=== PATIENT | female | born 1935 | race American Indian/Alaskan Native ===

== ENCOUNTER 2021-02-26 12:34 | Observation (INO) | payer MEDICARE, BC ==
[2021-02-26] MEDS ORDERED: Metoclopramide 10 MG/2 ML SDV IVPUSH ONE (13:00)
--- NOTE | 2021-02-26 13:00 | EDM.PDOC ---
ED HPI GENERAL MEDICAL PROBLEM - General Chief Complaint: Headache Stated Complaint: headache/vomiting Time Seen by Provider: 02/26/21 12:36 Source of Information: Reports: Patient History Limitations: Reports: No Limitations - History of Present Illness INITIAL COMMENTS - FREE TEXT/NARRATIVE: Patient is 85-year-old female presents today for multiple complaints. States that she is having swelling of her lower legs that she was given Lasix by her PMD and was told to take 1 daily however she took 6 pills in 1 day and she became nauseous afterwards. Also reports started having a diffuse headache as well but no vision changes no neurologic complaints. She was complaints abdominal pain after taking lisinopril as well. Patient reported some nausea and vomiting as well as still feels nauseous currently. Patient denies any fever chills or other complaints. headache Pain Score (Numeric/FACES): 8 - Related Data Allergies Allergy/AdvReac Type Severity Reaction Status Date / Time codeine Allergy Vomiting Verified 02/26/21 12:44 diazepam [From Valium] Allergy Cannot Verified 02/26/21 12:44 Remember doxycycline Allergy Nausea and Verified 02/26/21 12:44 Vomiting meperidine HCl [From Demerol] Allergy Nausea and Verified 02/26/21 12:44 Vomiting Home Meds: Home Meds Rivaroxaban [Xarelto] 15 mg PO DAILY #30 tablet 08/15/14 [Rx] HCTZ/Triamterene [Maxzide 50-75 MG] 0.5 tab PO DAILY 07/19/15 [History] Quinapril [Accupril] 10 mg PO DAILY 04/09/18 [History] traMADol HCl [Tramadol HCl] 50 mg PO Q6H PRN #16 tablet 05/04/19 [Rx] Past Medical History HEENT History: Reports: Cataract Other HEENT History: wears glasses Cardiovascular History: Reports: Afib, Hypertension 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: Musculoskeletal History: Reports: Arthritis Neurological History: Reports: Vertigo Other Neuro History: cannot lay flat Psychiatric History: Reports: Anxiety Endocrine/Metabolic History: Reports: Obesity/BMI 30+, Other (See Below) Other Endocrine/Metabolic History: states hypoglycemic Hematologic History: Reports: Anticoagulation Therapy, Blood Transfusion(s) - Infectious Disease History Infectious Disease History: Reports: Chicken Pox - Past Surgical History Head Surgeries/Procedures: Reports: None HEENT Surgical History: Reports: Cataract Surgery GI Surgical History: Reports: Cholecystectomy Female Surgical History: Reports: Hysterectomy, Other (See Below) Other Female Surgeries/Procedures: hx of "bladder lift" Musculoskeletal Surgical History: Reports: Knee Replacement Other Musculoskeletal Surgeries/Procedures:: Bilateral TKA Social & Family History - Family History Family Medical History: No Pertinent Family History - Caffeine Use Caffeine Use: Reports: None ED ROS GENERAL - Review of Systems Review Of Systems: See Below Constitutional: Reports: No Symptoms HEENT: Reports: No Symptoms Respiratory: Reports: Shortness of Breath Cardiovascular: Reports: No Symptoms Endocrine: Reports: No Symptoms GI/Abdominal: Reports: Abdominal Pain, Nausea, Vomiting : Reports: No Symptoms Musculoskeletal: Reports: No Symptoms Skin: Reports: No Symptoms Neurological: Reports: No Symptoms Psychiatric: Reports: No Symptoms Hematologic/Lymphatic: Reports: No Symptoms Immunologic: Reports: No Symptoms ED EXAM, GI/ABD - Physical Exam Exam: See Below Exam Limited By: No Limitations General Appearance: Alert, WD/WN, No Apparent Distress Eyes: Bilateral: EOMI Ears: Normal External Exam Respiratory/Chest: No Respiratory Distress, Lungs Clear, Normal Breath Sounds Cardiovascular: Normal Peripheral Pulses, Regular Rate, Rhythm GI/Abdominal Exam: Normal Bowel Sounds, Soft, Non-Tender Neurological: Alert, Oriented #1 Interpretation EKG Date: 02/26/21 Time: 15:36 Rhythm: NSR Rate (Beats/Min): 87 ST-T: Normal Course - Vital Signs Last Recorded V/S: Last Vital Signs Temp 97.5 F 02/26/21 12:44 Pulse 72 02/26/21 13:28 Resp 18 02/26/21 13:28 BP 100/58 L 02/26/21 13:28 Pulse Ox 97 02/26/21 13:28 - Orders/Labs/Meds Orders: Active Orders 24 hr Category Date Time Status Patient Status [ADT] Routine ADT 02/26/21 15:49 Ordered EKG 12 Lead [EKG Documentation Completion] [RC] STAT Care 02/26/21 15:23 Active CREATININE,URINE RAND [URCHEM] Stat Lab 02/26/21 15:15 Received OSMOLALITY - SERUM [REF] Stat Lab 02/26/21 13:58 Ordered OSMOLALITY - URINE Stat Lab 02/26/21 15:15 Received SODIUM,URINE RANDOM [URCHEM] Stat Lab 02/26/21 15:15 Received UREA NITROGEN, URINE Stat Lab 02/26/21 15:15 Received URIC ACID, URINE Stat Lab 02/26/21 15:15 Received Piperacillin/Tazobactam [Piperacil-Tazobact] 3.375 gm Med 02/26/21 15:50 Ordered Sodium Chloride 0.9% [Normal Saline] 50 ml IV ONETIME Sodium Chloride 0.9% [Normal Saline] 1,000 ml Med 02/26/21 15:30 Active IV ASDIRECTED Medication Orders Sodium Chloride (Normal Saline) 1,000 mls @ 1,000 mls/hr IV ASDIRECTED JANAK Last Admin: 02/26/21 15:43 Dose: 1,000 mls/hr Documented by: PATIENCE Labs: Laboratory Tests 02/26/21 02/26/21 02/26/21 Range/Units 12:47 12:47 12:47 WBC 11.50 H (4.0-11.0) K/uL RBC 4.23 L (4.30-5.90) M/uL Hgb 12.4 (12.0-16.0) g/dL Hct 35.6 L (36.0-46.0) % MCV 84.2 (80.0-98.0) fL MCH 29.3 (27.0-32.0) pg MCHC 34.8 (31.0-37.0) g/dL RDW Std Deviation 40.6 (28.0-62.0) fl RDW Coeff of Terence 14 (11.0-15.0) % Plt Count 238 (150-400) K/uL MPV 10.00 (7.40-12.00) fL Neut % (Auto) 65.6 (48.0-80.0) % Lymph % (Auto) 22.6 (16.0-40.0) % Dare % (Auto) 9.8 (0.0-15.0) % Eos % (Auto) 1.7 (0.0-7.0) % Baso % (Auto) 0.3 (0.0-1.5) % Neut # (Auto) 7.6 H (1.4-5.7) K/uL Lymph # (Auto) 2.6 H (0.6-2.4) K/uL Dare # (Auto) 1.1 H (0.0-0.8) K/uL Eos # (Auto) 0.2 (0.0-0.7) K/uL Baso # (Auto) 0.0 (0.0-0.1) K/uL Nucleated RBC % 0.0 /100WBC Nucleated RBCs # 0 K/uL Sodium 121 L (136-145) mmol/L Potassium 4.4 (3.5-5.1) mmol/L Chloride 86 L (98-107) mmol/L Carbon Dioxide 26.6 (21.0-32.0) mmol/L BUN 24 H (7.0-18.0) mg/dL Creatinine 1.2 H (0.6-1.0) mg/dL Est Cr Clr Drug Dosing 29.60 mL/min Estimated GFR (MDRD) 42.7 ml/min Glucose 97 (74-106) mg/dL Calcium 9.4 (8.5-10.1) mg/dL Phosphorus 3.9 (2.6-4.7) mg/dL Magnesium 1.4 L (1.8-2.4) mg/dL Total Bilirubin 0.6 (0.2-1.0) mg/dL AST 22 (15-37) IU/L ALT 20 (14-63) IU/L Alkaline Phosphatase 64 (46-116) U/L Creatine Kinase 71 (26-308) U/L Troponin I < 0.050 (0.000-0.056) ng/mL B-Natriuretic Peptide 171 H (<100) PG/ML Total Protein 7.1 (6.4-8.2) g/dL Albumin 3.7 (3.4-5.0) g/dL Globulin 3.4 (2.6-4.0) g/dL Albumin/Globulin Ratio 1.1 (0.9-1.6) Lipase 129 (73-393) U/L Urine Color Urine Appearance Urine pH (5.0-8.0) Ur Specific [place] (1.001-1.035) Urine Protein (NEGATIVE) mg/dL Urine Glucose (UA) (NEGATIVE) mg/dL Urine Ketones (NEGATIVE) mg/dL Urine Occult Blood (NEGATIVE) Urine Nitrite (NEGATIVE) Urine Bilirubin (NEGATIVE) Urine Urobilinogen (<2.0) EU/dL Ur Leukocyte Esterase (NEGATIVE) Urine RBC (0-2/HPF) Urine WBC (0-5/HPF) Ur Epithelial Cells (NONE-FEW) Urine Bacteria (NEGATIVE) 02/26/21 Range/Units 15:15 WBC (4.0-11.0) K/uL RBC (4.30-5.90) M/uL Hgb (12.0-16.0) g/dL Hct (36.0-46.0) % MCV (80.0-98.0) fL MCH (27.0-32.0) pg MCHC (31.0-37.0) g/dL RDW Std Deviation (28.0-62.0) fl RDW Coeff of Terence (11.0-15.0) % Plt Count (150-400) K/uL MPV (7.40-12.00) fL Neut % (Auto) (48.0-80.0) % Lymph % (Auto) (16.0-40.0) % Dare % (Auto) (0.0-15.0) % Eos % (Auto) (0.0-7.0) % Baso % (Auto) (0.0-1.5) % Neut # (Auto) (1.4-5.7) K/uL Lymph # (Auto) (0.6-2.4) K/uL Dare # (Auto) (0.0-0.8) K/uL Eos # (Auto) (0.0-0.7) K/uL Baso # (Auto) (0.0-0.1) K/uL Nucleated RBC % /100WBC Nucleated RBCs # K/uL Sodium (136-145) mmol/L Potassium (3.5-5.1) mmol/L Chloride (98-107) mmol/L Carbon Dioxide (21.0-32.0) mmol/L BUN (7.0-18.0) mg/dL Creatinine (0.6-1.0) mg/dL Est Cr Clr Drug Dosing mL/min Estimated GFR (MDRD) ml/min Glucose (74-106) mg/dL Calcium (8.5-10.1) mg/dL Phosphorus (2.6-4.7) mg/dL Magnesium (1.8-2.4) mg/dL Total Bilirubin (0.2-1.0) mg/dL AST (15-37) IU/L ALT (14-63) IU/L Alkaline Phosphatase (46-116) U/L Creatine Kinase (26-308) U/L Troponin I (0.000-0.056) ng/mL B-Natriuretic Peptide (<100) PG/ML Total Protein (6.4-8.2) g/dL Albumin (3.4-5.0) g/dL Globulin (2.6-4.0) g/dL Albumin/Globulin Ratio (0.9-1.6) Lipase (73-393) U/L Urine Color YELLOW Urine Appearance SLT CLOUDY Urine pH 7.0 (5.0-8.0) Ur Specific [place] 1.010 (1.001-1.035) Urine Protein NEGATIVE (NEGATIVE) mg/dL Urine Glucose (UA) NEGATIVE (NEGATIVE) mg/dL Urine Ketones NEGATIVE (NEGATIVE) mg/dL Urine Occult Blood TRACE-INTACT H (NEGATIVE) Urine Nitrite NEGATIVE (NEGATIVE) Urine Bilirubin NEGATIVE (NEGATIVE) Urine Urobilinogen 0.2 (<2.0) EU/dL Ur Leukocyte Esterase LARGE H (NEGATIVE) Urine RBC 0-2 (0-2/HPF) Urine WBC 15-20 (0-5/HPF) Ur Epithelial Cells RARE (NONE-FEW) Urine Bacteria 1+ H (NEGATIVE) Meds: Medications Generic Name Dose Route Start Last Admin Trade Name Freq PRN Reason Stop Dose Admin Sodium Chloride 1,000 mls @ 1,000 mls/hr 02/26/21 15:30 02/26/21 15:43 Normal Saline IV 1,000 mls/hr ASDIRECTED JANAK Administration Discontinued Medications Generic Name Dose Route Start Last Admin Trade Name Freq PRN Reason Stop Dose Admin Iopamidol 80 ml 02/26/21 14:50 02/26/21 14:50 Iopamidol 755 Mg/Ml 500 Ml Multipack Bottle IVPUSH 02/26/21 14:51 80 ml ONETIME ONE Administration Metoclopramide HCl 10 mg 02/26/21 13:00 02/26/21 13:23 Metoclopramide 10 Mg/2 Ml Sdv IVPUSH 02/26/21 13:01 10 mg ONETIME ONE Administration - Re-Assessments/Exams Free Text/Narrative Re-Assessment/Exam: 02/26/21 15:52 Patient is hyponatremic will be given a liter of fluids. Patient is a symptomatic currently. Patient CAT scan showed enteritis. Patient will be admitted for observation sodium correction. Departure - Departure Time of Disposition: 15:51 Disposition: Refer to Observation Condition: Good Clinical Impression: Hyponatremia - Discharge Information Forms: ED Department Discharge Critical Care Note - Critical Care Note Total Time (mins): 45 Comments: Critical Care Procedure Note Authorized and Performed by: Dr. Junior Total critical care time: Approximately Due to a high probability of clinically significant, life threatening deterioration, the patient required my highest level of preparedness to interv lucinda emergently and I personally spent this critical care time directly and personally managing the patient. This critical care time included obtaining a history; examining the patient; pulse oximetry; ordering and review of studies; arranging urgent treatment with development of a management plan; evaluation of patient's response to treatment; frequent reassessment; and, discussions with other providers. This critical care time was performed to assess and manage the high probability of imminent, life-threatening deterioration that could result in multi-organ failure. It was exclusive of separately billable procedures and treating other patients and teaching time. Sepsis Event Note (ED) - Focused Exam Vital Signs: Vital Signs Temp Pulse Resp BP Pulse Ox 02/26/21 13:28 72 18 100/58 L 97 02/26/21 12:44 97.5 F 67 18 121/75 97 - My Orders Last 24 Hours: My Active Orders 02/26/21 13:58 OSMOLALITY - SERUM [REF] Stat 02/26/21 15:15 CREATININE,URINE RAND [URCHEM] Stat OSMOLALITY - URINE Stat SODIUM,URINE RANDOM [URCHEM] Stat UREA NITROGEN, URINE Stat URIC ACID, URINE Stat 02/26/21 15:23 EKG 12 Lead [EKG Documentation Completion] [RC] STAT 02/26/21 15:30 Sodium Chloride 0.9% [Normal Saline] 1,000 ml IV ASDIRECTED 02/26/21 15:49 Patient Status [ADT] Routine 02/26/21 15:50 Piperacillin/Tazobactam [Piperacil-Tazobact] 3.375 gm Sodium Chloride 0.9% [Normal Saline] 50 ml IV ONETIME - Assessment/Plan Last 24 Hours: My Active Orders 02/26/21 13:58 OSMOLALITY - SERUM [REF] Stat 02/26/21 15:15 CREATININE,URINE RAND [URCHEM] Stat OSMOLALITY - URINE Stat SODIUM,URINE RANDOM [URCHEM] Stat UREA NITROGEN, URINE Stat URIC ACID, URINE Stat 02/26/21 15:23 EKG 12 Lead [EKG Documentation Completion] [RC] STAT 02/26/21 15:30 Sodium Chloride 0.9% [Normal Saline] 1,000 ml IV ASDIRECTED 02/26/21 15:49 Patient Status [ADT] Routine 02/26/21 15:50 Piperacillin/Tazobactam [Piperacil-Tazobact] 3.375 gm Sodium Chloride 0.9% [Normal Saline] 50 ml IV ONETIME Assessment:: Patient is a 85-year-old female who presents today for complaints of lower extremity swelling abdominal pain and headache. She also states she took 6 of her water pills in 1 day because she went to get more fluid off. Symptoms may be related to this. We will obtain x-ray CT of the abdomen and provide a pain control.
[2021-02-26 13:45] LABS: BLOOD UREA NITROGEN,BUN 24 mg/dL (7.0-18.0); CARBON DIOXIDE,CO2 26.6 mmol/L (21.0-32.0); GLUCOSE RANDOM 97 mg/dL (74-106); LIPASE 129 U/L (73-393)
[2021-02-26 13:52] LABS: CHLORIDE,CL 86 mmol/L (98-107); POTASSIUM,K 4.4 mmol/L (3.5-5.1)
[2021-02-26 14:22] LABS: SODIUM,NA 121 mmol/L (136-145)
[2021-02-26] MEDS ORDERED: Iopamidol 755 MG/ML 500 ML Multipack Bottle IVPUSH ONE (14:50)
--- NOTE | 2021-02-26 15:24 | CT ---
INDICATION: Dizziness and headache TECHNIQUE: CT head without contrast. COMPARISON: None. FINDINGS: CSF spaces: Within normal limits for age. Brain parenchyma and extra-axial spaces: The gomez-white differentiation is normal. No sign of mass, hemorrhage, or midline shift. No extra-axial fluid collection. Skull base and calvarium: The visualized paranasal sinuses and mastoid air cells demonstrate no acute or significant findings. The visualized orbits are grossly unremarkable. No skull fractures. IMPRESSION: Unremarkable noncontrast head CT. Please note that all CT scans at this facility use dose modulation, iterative reconstruction, and/or weight-based dosing when appropriate to reduce radiation dose to as low as reasonably achievable. Dictated by Estiven Diaz MD @ 02/26/2021 3:24:[address] Estiven Diaz @ Feb 26 2021 3:24PM
[2021-02-26] MEDS ORDERED: Sodium Chloride 0.9% 1,000 ML IV SCH (15:30)
--- NOTE | 2021-02-26 15:35 | CR ---
INDICATION: Shortness of breath. CHF. COMPARISON: 05/11/2015 FINDINGS: AP and lateral views of the chest were obtained. The lungs remain clear. No focal or diffuse infiltrates are present. The heart has increased in size and is now top normal in size. The mediastinum is normal in appearance. The osseous structures are normal in appearance for the patient`s age. IMPRESSION: Increased heart size, not top-normal. No active disease seen in the chest. Dictated by Tylor Julio MD @ 02/26/2021 3:33:[address] Tylor Julio @ Feb 26 2021 3:33PM
--- NOTE | 2021-02-26 15:46 | CT ---
INDICATION: Abdominal pain. TECHNIQUE: CT abdomen and pelvis acquired with 80 cc Isovue 370 IV contrast. COMPARISON: June 05, 2017. FINDINGS: Lower chest: Unremarkable. Liver: Unremarkable. Normal in size and attenuation. No suspicious masses. Gallbladder and bile ducts: Gallbladder is not present. No biliary dilatation. Pancreas: Unremarkable. No mass or inflammation. Spleen: Unremarkable. Normal in size. No suspicious masses. Adrenal glands: Unremarkable. No nodules. Kidneys: Moderate bilateral atrophy. Otherwise unremarkable. GI tract: Small fluid levels present in the distal small bowel and proximal colon. GI tract otherwise within normal limits in caliber and appearance. No sign of mass or acute inflammation. Vasculature: Unremarkable. Mesenteric arteries are patent. Lymph nodes: No lymphadenopathy. Omentum/Peritoneum/Abdominal Wall: Unremarkable. No sign of mass or infiltration. No free air or significant free fluid. Pelvis: Unremarkable. Bones: Unremarkable for age. IMPRESSION: Nonspecific small fluid levels in the distal small bowel and proximal colon can be seen with a general enteritis or diarrheal illness. Remainder of the exam is unremarkable. No other acute or specific finding to explain abdominal pain. Please note that all CT scans at this facility use dose modulation, iterative reconstruction, and/or weight-based dosing when appropriate to reduce radiation dose to as low as reasonably achievable. Dictated by Estiven Diaz MD @ 02/26/2021 3:44:[address] Estiven Diaz @ Feb 26 2021 3:44PM
[2021-02-26] MEDS ORDERED: Piperacillin/Tazobactam 3.375 GM in Sodium Chloride 0.9% 50 ML IV ONE (15:50)
[2021-02-26] MEDS ORDERED: Albuterol/Ipratropium 3.0-0.5 MG/3 ML Neb Soln NEB PRN (17:06)
[2021-02-26] MEDS ORDERED: Lactated Ringers 1,000 ML IV ONE (17:06)
[2021-02-26] MEDS ORDERED: Ondansetron 4 MG/2 ML SDV IVPUSH PRN (17:06)
--- NOTE | 2021-02-26 17:10 | PCM.HP.2 ---
H&P History of Present Illness - General Date of Service: 02/26/21 Admit Problem/Dx: Admission Diagnosis/Problem Admission Diagnosis/Problem Hyponatremia - History of Present Illness Initial Comments - Free Text/Narative: Patient is a 85-year-old female with past medical history of A. fib on anticoagulation, hypertension, arthritis who comes in stating that she has been nauseous and has vomited once associated with some abdominal pain for last few days. Patient states that couple of days back she was started on Lasix by her primary care doctor for leg swelling she took 1 pill on first day and 2 pills following day for 3 more days. She did not have a good appetite after starting her Lasix pill and felt nauseous and had abdominal pain as well as result she got dehydrated. Patient states that her leg swelling has resolved by now but continues to have some abdominal discomfort. In the ER patient was found to be hyponatremic as well has had some mild renal insufficiency. CT scan of the abdomen was obtained which showed possible colitis. Patient was admitted to the hospital for further management of hyponatremia and colitis. headache Pain Score (Numeric/FACES): 8 - Related Data Allergies/Adverse Reactions: Allergies Allergy/AdvReac Type Severity Reaction Status Date / Time codeine Allergy Vomiting Verified 02/26/21 17:27 diazepam [From Valium] Allergy Cannot Verified 02/26/21 17:27 Remember doxycycline Allergy Nausea and Verified 02/26/21 17:27 Vomiting meperidine HCl [From Demerol] Allergy Nausea and Verified 02/26/21 17:27 Vomiting Home Medications: Home Meds Rivaroxaban [Xarelto] 15 mg PO DAILY #30 tablet 08/15/14 [Rx] Quinapril [Accupril] 20 mg PO DAILY 04/09/18 [History] Furosemide 40 mg PO ASDIRECTED 02/27/21 [History] Triamterene/Hydrochlorothiazid [Triamterene-HCTZ 37.5-25 MG] 1 tab PO DAILY 02/27/21 [History] atenoloL [Atenolol] 50 mg PO DAILY 02/27/21 [History] traMADol HCl [Tramadol HCl] 50 mg PO QPM PRN MDD 50 02/27/21 [History] Past Medical History HEENT History: Reports: Cataract Other HEENT History: wears glasses Cardiovascular History: Reports: Afib, Hypertension 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: Musculoskeletal History: Reports: Arthritis Neurological History: Reports: Vertigo Other Neuro History: cannot lay flat Psychiatric History: Reports: Anxiety Endocrine/Metabolic History: Reports: Obesity/BMI 30+, Other (See Below) Other Endocrine/Metabolic History: states hypoglycemic Hematologic History: Reports: Anticoagulation Therapy, Blood Transfusion(s) - Infectious Disease History Infectious Disease History: Reports: Chicken Pox - Past Surgical History Head Surgeries/Procedures: Reports: None HEENT Surgical History: Reports: Cataract Surgery GI Surgical History: Reports: Cholecystectomy Female Surgical History: Reports: Hysterectomy, Other (See Below) Other Female Surgeries/Procedures: hx of "bladder lift" Musculoskeletal Surgical History: Reports: Knee Replacement Other Musculoskeletal Surgeries/Procedures:: Bilateral TKA Social & Family History - Family History Family Medical History: No Pertinent Family History - Caffeine Use Caffeine Use: Reports: None H&P Review of Systems - Review of Systems: Review Of Systems: See Below General: Reports: Malaise, Weakness. Denies: Fever, Chills Pulmonary: Denies: Shortness of Breath, Wheezing, Pleuritic Chest Pain Gastrointestinal: Reports: Abdominal Pain, Anorexia, Decreased Appetite, Nausea, Vomiting. Denies: Black Stool, Bloody Stool Genitourinary: Denies: Dysuria, Frequency, Burning Musculoskeletal: Denies: Neck Pain, Shoulder Pain, Arm Pain Skin: Denies: Cyanosis, Jaundice, Mottled Psychiatric: Denies: Confusion, Depression, Mood Lability Neurological: Denies: Confusion, Dizziness, Headache, Numbness Exam - Exam Exam: See Below - Vital Signs Vital Signs: Last Vital Signs Temp 36.4 C 02/26/21 12:44 Pulse 72 02/26/21 13:28 Resp 18 02/26/21 13:28 BP 100/58 L 02/26/21 13:28 Pulse Ox 97 02/26/21 13:28 Weight: 86.183 kg - Exam General: Alert, Oriented, Cooperative Neck: Supple, Trachea Midline Lungs: Clear to Auscultation, Normal Respiratory Effort Cardiovascular: Regular Rate, Normal S1, Normal S2, Irregular Rhythm GI/Abdominal Exam: Normal Bowel Sounds, Soft, Non-Tender Extremities: Normal Inspection, Normal Range of Motion - Patient Data Lab Results Last 24 hrs: Laboratory Results - last 24 hr 02/26/21 02/26/21 02/26/21 Range/Units 12:47 12:47 12:47 WBC 11.50 H (4.0-11.0) K/uL RBC 4.23 L (4.30-5.90) M/uL Hgb 12.4 (12.0-16.0) g/dL Hct 35.6 L (36.0-46.0) % MCV 84.2 (80.0-98.0) fL MCH 29.3 (27.0-32.0) pg MCHC 34.8 (31.0-37.0) g/dL RDW Std Deviation 40.6 (28.0-62.0) fl RDW Coeff of Terence 14 (11.0-15.0) % Plt Count 238 (150-400) K/uL MPV 10.00 (7.40-12.00) fL Neut % (Auto) 65.6 (48.0-80.0) % Lymph % (Auto) 22.6 (16.0-40.0) % Mower % (Auto) 9.8 (0.0-15.0) % Eos % (Auto) 1.7 (0.0-7.0) % Baso % (Auto) 0.3 (0.0-1.5) % Neut # (Auto) 7.6 H (1.4-5.7) K/uL Lymph # (Auto) 2.6 H (0.6-2.4) K/uL Mower # (Auto) 1.1 H (0.0-0.8) K/uL Eos # (Auto) 0.2 (0.0-0.7) K/uL Baso # (Auto) 0.0 (0.0-0.1) K/uL Nucleated RBC % 0.0 /100WBC Nucleated RBCs # 0 K/uL Sodium 121 L (136-145) mmol/L Potassium 4.4 (3.5-5.1) mmol/L Chloride 86 L (98-107) mmol/L Carbon Dioxide 26.6 (21.0-32.0) mmol/L BUN 24 H (7.0-18.0) mg/dL Creatinine 1.2 H (0.6-1.0) mg/dL Est Cr Clr Drug Dosing 29.60 mL/min Estimated GFR (MDRD) 42.7 ml/min Glucose 97 (74-106) mg/dL Calcium 9.4 (8.5-10.1) mg/dL Phosphorus 3.9 (2.6-4.7) mg/dL Magnesium 1.4 L (1.8-2.4) mg/dL Total Bilirubin 0.6 (0.2-1.0) mg/dL AST 22 (15-37) IU/L ALT 20 (14-63) IU/L Alkaline Phosphatase 64 (46-116) U/L Creatine Kinase 71 (26-308) U/L Troponin I < 0.050 (0.000-0.056) ng/mL B-Natriuretic Peptide 171 H (<100) PG/ML Total Protein 7.1 (6.4-8.2) g/dL Albumin 3.7 (3.4-5.0) g/dL Globulin 3.4 (2.6-4.0) g/dL Albumin/Globulin Ratio 1.1 (0.9-1.6) Lipase 129 (73-393) U/L Urine Color Urine Appearance Urine pH (5.0-8.0) Ur Specific [place] (1.001-1.035) Urine Protein (NEGATIVE) mg/dL Urine Glucose (UA) (NEGATIVE) mg/dL Urine Ketones (NEGATIVE) mg/dL Urine Occult Blood (NEGATIVE) Urine Nitrite (NEGATIVE) Urine Bilirubin (NEGATIVE) Urine Urobilinogen (<2.0) EU/dL Ur Leukocyte Esterase (NEGATIVE) Urine RBC (0-2/HPF) Urine WBC (0-5/HPF) Ur Epithelial Cells (NONE-FEW) Urine Bacteria (NEGATIVE) Ur Random Creatinine mg/dL Ur Random Sodium (40.0-220.0) mmol/L 02/26/21 02/26/21 Range/Units 15:15 15:15 WBC (4.0-11.0) K/uL RBC (4.30-5.90) M/uL Hgb (12.0-16.0) g/dL Hct (36.0-46.0) % MCV (80.0-98.0) fL MCH (27.0-32.0) pg MCHC (31.0-37.0) g/dL RDW Std Deviation (28.0-62.0) fl RDW Coeff of Terence (11.0-15.0) % Plt Count (150-400) K/uL MPV (7.40-12.00) fL Neut % (Auto) (48.0-80.0) % Lymph % (Auto) (16.0-40.0) % Mower % (Auto) (0.0-15.0) % Eos % (Auto) (0.0-7.0) % Baso % (Auto) (0.0-1.5) % Neut # (Auto) (1.4-5.7) K/uL Lymph # (Auto) (0.6-2.4) K/uL Mower # (Auto) (0.0-0.8) K/uL Eos # (Auto) (0.0-0.7) K/uL Baso # (Auto) (0.0-0.1) K/uL Nucleated RBC % /100WBC Nucleated RBCs # K/uL Sodium (136-145) mmol/L Potassium (3.5-5.1) mmol/L Chloride (98-107) mmol/L Carbon Dioxide (21.0-32.0) mmol/L BUN (7.0-18.0) mg/dL Creatinine (0.6-1.0) mg/dL Est Cr Clr Drug Dosing mL/min Estimated GFR (MDRD) ml/min Glucose (74-106) mg/dL Calcium (8.5-10.1) mg/dL Phosphorus (2.6-4.7) mg/dL Magnesium (1.8-2.4) mg/dL Total Bilirubin (0.2-1.0) mg/dL AST (15-37) IU/L ALT (14-63) IU/L Alkaline Phosphatase (46-116) U/L Creatine Kinase (26-308) U/L Troponin I (0.000-0.056) ng/mL B-Natriuretic Peptide (<100) PG/ML Total Protein (6.4-8.2) g/dL Albumin (3.4-5.0) g/dL Globulin (2.6-4.0) g/dL Albumin/Globulin Ratio (0.9-1.6) Lipase (73-393) U/L Urine Color YELLOW Urine Appearance SLT CLOUDY Urine pH 7.0 (5.0-8.0) Ur Specific [place] 1.010 (1.001-1.035) Urine Protein NEGATIVE (NEGATIVE) mg/dL Urine Glucose (UA) NEGATIVE (NEGATIVE) mg/dL Urine Ketones NEGATIVE (NEGATIVE) mg/dL Urine Occult Blood TRACE-INTACT H (NEGATIVE) Urine Nitrite NEGATIVE (NEGATIVE) Urine Bilirubin NEGATIVE (NEGATIVE) Urine Urobilinogen 0.2 (<2.0) EU/dL Ur Leukocyte Esterase LARGE H (NEGATIVE) Urine RBC 0-2 (0-2/HPF) Urine WBC 15-20 (0-5/HPF) Ur Epithelial Cells RARE (NONE-FEW) Urine Bacteria 1+ H (NEGATIVE) Ur Random Creatinine 28.6 mg/dL Ur Random Sodium 52.0 (40.0-220.0) mmol/L Result Diagrams: 02/27/21 07:04 02/27/21 07:04 Sepsis Event Note - Evaluation Sepsis Screening Result: No Definite Risk - Focused Exam Vital Signs: Vital Signs Temp Pulse Resp BP Pulse Ox 02/26/21 13:28 72 18 100/58 L 97 02/26/21 12:44 36.4 C 67 18 121/75 97 - Problem List (1) Hyponatremia SNOMED Code(s): 79156460 ICD Code: E87.1 - HYPO-OSMOLALITY AND HYPONATREMIA Status: Acute Current Visit: Yes (2) Anticoagulant long-term use SNOMED Code(s): 532892892 ICD Code: Z79.01 - 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 Status: Acute Priority: Medium Current Visit: No (3) Arthritis of left foot SNOMED Code(s): 3752295163960083 ICD Code: M19.072 - PRIMARY OSTEOARTHRITIS, LEFT ANKLE AND FOOT Status: Acute Current Visit: No (4) Atrial fibrillation SNOMED Code(s): 84089541 ICD Code: I48.91 - UNSPECIFIED ATRIAL FIBRILLATION Status: Acute Current Visit: No Qualifiers: Atrial fibrillation type: chronic (5) Hypertension SNOMED Code(s): 87687456 ICD Code: I10 - ESSENTIAL (PRIMARY) HYPERTENSION Status: Acute Priority: Medium Current Visit: No Qualifiers: Hypertension type: essential hypertension Qualified Code(s): I10 - Essential (primary) hypertension (6) Osteoarthritis of knee SNOMED Code(s): 224845063 ICD Code: M17.9 - OSTEOARTHRITIS OF KNEE, UNSPECIFIED Status: Acute Current Visit: No (7) Spinal stenosis SNOMED Code(s): 57109253 ICD Code: M48.00 - SPINAL STENOSIS, SITE UNSPECIFIED Status: Acute Current Visit: No (8) UTI (urinary tract infection) SNOMED Code(s): 07932543 ICD Code: N39.0 - URINARY TRACT INFECTION, SITE NOT SPECIFIED Status: Acute Current Visit: No Problem List Initiated/Reviewed/Updated: Yes Orders Last 24hrs: Active Orders 24 hr Category Date Time Status Patient Status [ADT] Routine ADT 02/26/21 15:49 Active Ambulate [RC] ASDIRECTED Care 02/26/21 17:06 Ordered Antiembolic Devices [RC] PER UNIT ROUTINE Care 02/26/21 17:07 Ordered EKG 12 Lead [EKG Documentation Completion] [RC] STAT Care 02/26/21 15:23 Active Oxygen Therapy [RC] PRN Care 02/26/21 17:06 Ordered Pulse Oximetry [RC] PRN Care 02/26/21 17:06 Ordered RT Aerosol Therapy [RC] ASDIRECTED Care 02/26/21 17:08 Ordered VTE/DVT Education [RC] PER UNIT ROUTINE Care 02/26/21 17:06 Ordered Vital Signs [RC] Q4H Care 02/26/21 17:06 Ordered Clear Liquid Diet [DIET] Diet 02/26/21 Dinner Ordered BMP [BASIC METABOLIC PANEL,BMP] [CHEM] AM Lab 02/27/21 05:11 Ordered CBC WITH AUTO DIFF [HEME] AM Lab 02/27/21 05:11 Ordered MAGNESIUM [CHEM] AM Lab 02/27/21 05:11 Ordered OSMOLALITY - SERUM [REF] Stat Lab 02/26/21 13:58 Ordered OSMOLALITY - URINE Stat Lab 02/26/21 15:15 Received PHOSPHORUS [CHEM] AM Lab 02/27/21 05:11 Ordered UREA NITROGEN, URINE Stat Lab 02/26/21 15:15 Received URIC ACID, URINE Stat Lab 02/26/21 15:15 Received Acetaminophen [TylenoL] Med 02/26/21 17:06 Ordered 650 mg PO Q4H PRN Albuterol/Ipratropium [DuoNeb 3.0-0.5 MG/3 ML] Med 02/26/21 17:06 Ordered 3 ml NEB Q4HRRT PRN Heparin Sodium Med 02/26/21 17:15 Ordered 5,000 units SUBCUT Q8H Lactated Ringers @ 125 MLS/HR(1000ml) Med 02/26/21 17:15 Ordered Lactated Ringers [Ringers, Lactated] 1,000 ml IV ASDIRECTED Lactated Ringers [Ringers, Lactated] 1,000 ml Med 02/26/21 17:06 Ordered IV BOLUS Magnesium Sulfate/Water [Magnesium Sulfate in Water 2 Med 02/26/21 17:08 Ordered GM/50 ML] 2 gm Premix Bag 1 bag IV ONETIME Ondansetron [Zofran] Med 02/26/21 17:06 Ordered 4 mg IVPUSH Q4H PRN Pantoprazole [ProTONIX IV] Med 02/27/21 09:00 Ordered 40 mg IV DAILY Sodium Chloride 0.9% [Normal Saline] 1,000 ml Med 02/26/21 15:30 Active IV ASDIRECTED Sequential Compression Device [OM.PC] Per Unit Routine Oth 02/26/21 17:06 Ordered Medication Orders Acetaminophen (Acetaminophen 325 Mg Tab) 650 mg PO Q4H PRN PRN Reason: Pain (Mild 1-3)/fever Albuterol/Ipratropium (Albuterol/Ipratropium 3.0-0.5 Mg/3 Ml Neb Soln) 3 ml NEB Q4HRRT PRN PRN Reason: Shortness Of Breath/wheezing Heparin Sodium (Porcine) (Heparin Sodium 5,000 Units/Ml Vial) 5,000 units SUBCUT Q8H JANAK Sodium Chloride (Normal Saline) 1,000 mls @ 1,000 mls/hr IV ASDIRECTED JANAK Last Admin: 02/26/21 15:43 Dose: 1,000 mls/hr Documented by: PATIENCE Lactated Ringer's (Ringers, Lactated) 1,000 mls @ 125 mls/hr IV ASDIRECTED JANAK Lactated Ringer's (Ringers, Lactated) 1,000 mls @ 999 mls/hr IV BOLUS ONE Stop: 02/26/21 18:06 Magnesium Sulfate 2 gm/ Premix 50 mls @ 12.5 mls/hr IV ONETIME ONE Stop: 02/26/21 21:07 Ondansetron HCl (Ondansetron 4 Mg/2 Ml Sdv) 4 mg IVPUSH Q4H PRN PRN Reason: Nausea/Vomiting Pantoprazole Sodium (Pantoprazole 40 Mg Vial) 40 mg IV DAILY [facility] Assessment/Plan Comment:: 85-year-old female admitted for generalized weakness, nausea, vomiting and abdominal pain CT scan significant for colitis Patient was also found to be hyponatremic likely secondary to recent Lasix use as well as nausea and vomiting, patient denies any diarrhea Start IV fluid hydration, possibly hypovolemic hyponatremia Start IV antibiotics including Cipro and Flagyl If patient has diarrhea obtain a stool sample UA noted, although patient asymptomatic, follow-up on urine cultures IV Zofran for nausea vomiting although patient states her symptoms have resolved IV pantoprazole daily DuoNebs as needed Recheck sodium in a.m. Monitor and replete electrolytes as necessary Patient is full code SCDs for DVT prophylaxis Anticipate 1 to 2 days of hospital stay
[2021-02-26] MEDS ORDERED: Ciprofloxacin in D5W 400 MG in Premix Bag 1 BAG IV SCH ×2 (17:45)
[2021-02-26] MEDS ORDERED: metroNIDAZOLE/Normal Saline 500 MG in Premix Bag 1 BAG IV SCH (18:00)
[2021-02-26] MEDS: Magnesium Sulfate/Water 2 GM in Premix Bag 1 BAG IV ONE ×2 (18:13→20:29)
[2021-02-26] MEDS: Heparin Sodium 5,000 Units/ML Vial SUBCUT SCH (18:52)
[2021-02-26] MEDS: Lactated Ringers 1,000 ML IV SCH (20:28)
[2021-02-26] MEDS: Ciprofloxacin in D5W 400 MG in Premix Bag 1 BAG IV SCH ×2 (20:30)
[2021-02-26] MEDS: metroNIDAZOLE/Normal Saline 500 MG in Premix Bag 1 BAG IV SCH (22:49)
[2021-02-27] MEDS: Heparin Sodium 5,000 Units/ML Vial SUBCUT SCH ×3 (01:57→17:19)
[2021-02-27] MEDS: Acetaminophen 325 MG Tab PO PRN ×2 (04:06→23:31)
[2021-02-27] MEDS: metroNIDAZOLE/Normal Saline 500 MG in Premix Bag 1 BAG IV SCH ×3 (04:08→20:34)
[2021-02-27] MEDS: Lactated Ringers 1,000 ML IV SCH (06:16)
[2021-02-27 08:08] LABS: CARBON DIOXIDE,CO2 26.1 mmol/L (21.0-32.0); POTASSIUM,K 3.7 mmol/L (3.5-5.1)
[2021-02-27] MEDS: Pantoprazole 40 MG Vial IV SCH (09:11)
[2021-02-27] MEDS: Ciprofloxacin in D5W 400 MG in Premix Bag 1 BAG IV SCH ×4 (09:13→20:29)
[2021-02-27] MEDS ORDERED: traMADol 50 MG Tab PO PRN (12:25)
--- NOTE | 2021-02-27 13:31 | PCM.PN ---
- General Info Date of Service: 02/27/21 Admission Dx/Problem (Free Text): Admission Diagnosis/Problem Admission Diagnosis/Problem Hyponatremia Subjective Update: Patient seen at bedside, no acute distress per nursing patient had an episode of loose stool today Functional Status: Reports: Pain Controlled, Tolerating Diet, Ambulating, Urinat ing - Review of Systems General: Denies: Fever, Weakness, Fatigue Pulmonary: Denies: Shortness of Breath, Pleuritic Chest Pain Cardiovascular: Denies: Chest Pain, Palpitations, Dyspnea on Exertion Gastrointestinal: Reports: Diarrhea. Denies: Abdominal Pain, Constipation, Decreased Appetite Genitourinary: Denies: Dysuria, Frequency, Burning Musculoskeletal: Denies: Neck Pain, Shoulder Pain, Arm Pain Skin: Denies: Cyanosis, Jaundice, Mottled - Patient Data Vitals - Most Recent: Last Vital Signs Temp 36.1 C 02/27/21 11:55 Pulse 70 02/27/21 11:55 Resp 16 02/27/21 11:55 BP 122/65 02/27/21 11:55 Pulse Ox 97 02/27/21 11:55 Weight - Most Recent: 91.172 kg I&O - Last 24 Hours: Intake & Output 02/26/21 02/27/21 02/27/21 22:59 06:59 14:59 Intake Total 200 Output Total 1100 Balance -900 Lab Results Last 24 Hours: Laboratory Results - last 24 hr 02/26/21 02/26/21 02/26/21 Range/Units 12:47 12:47 15:15 WBC (4.0-11.0) K/uL RBC (4.30-5.90) M/uL Hgb (12.0-16.0) g/dL Hct (36.0-46.0) % MCV (80.0-98.0) fL MCH (27.0-32.0) pg MCHC (31.0-37.0) g/dL RDW Std Deviation (28.0-62.0) fl RDW Coeff of Terence (11.0-15.0) % Plt Count (150-400) K/uL MPV (7.40-12.00) fL Neut % (Auto) (48.0-80.0) % Lymph % (Auto) (16.0-40.0) % [place] % (Auto) (0.0-15.0) % Eos % (Auto) (0.0-7.0) % Baso % (Auto) (0.0-1.5) % Neut # (Auto) (1.4-5.7) K/uL Lymph # (Auto) (0.6-2.4) K/uL [place] # (Auto) (0.0-0.8) K/uL Eos # (Auto) (0.0-0.7) K/uL Baso # (Auto) (0.0-0.1) K/uL Nucleated RBC % /100WBC Nucleated RBCs # K/uL Sodium 121 L (136-145) mmol/L Potassium 4.4 (3.5-5.1) mmol/L Chloride 86 L (98-107) mmol/L Carbon Dioxide 26.6 (21.0-32.0) mmol/L BUN 24 H (7.0-18.0) mg/dL Creatinine 1.2 H (0.6-1.0) mg/dL Est Cr Clr Drug Dosing 29.60 mL/min Estimated GFR (MDRD) 42.7 ml/min Glucose 97 (74-106) mg/dL Calcium 9.4 (8.5-10.1) mg/dL Phosphorus 3.9 (2.6-4.7) mg/dL Magnesium 1.4 L (1.8-2.4) mg/dL Total Bilirubin 0.6 (0.2-1.0) mg/dL AST 22 (15-37) IU/L ALT 20 (14-63) IU/L Alkaline Phosphatase 64 (46-116) U/L Creatine Kinase 71 (26-308) U/L Troponin I < 0.050 (0.000-0.056) ng/mL B-Natriuretic Peptide 171 H (<100) PG/ML Total Protein 7.1 (6.4-8.2) g/dL Albumin 3.7 (3.4-5.0) g/dL Globulin 3.4 (2.6-4.0) g/dL Albumin/Globulin Ratio 1.1 (0.9-1.6) Lipase 129 (73-393) U/L Urine Color YELLOW Urine Appearance SLT CLOUDY Urine pH 7.0 (5.0-8.0) Ur Specific [place] 1.010 (1.001-1.035) Urine Protein NEGATIVE (NEGATIVE) mg/dL Urine Glucose (UA) NEGATIVE (NEGATIVE) mg/dL Urine Ketones NEGATIVE (NEGATIVE) mg/dL Urine Occult Blood TRACE-INTACT H (NEGATIVE) Urine Nitrite NEGATIVE (NEGATIVE) Urine Bilirubin NEGATIVE (NEGATIVE) Urine Urobilinogen 0.2 (<2.0) EU/dL Ur Leukocyte Esterase LARGE H (NEGATIVE) Urine RBC 0-2 (0-2/HPF) Urine WBC 15-20 (0-5/HPF) Ur Epithelial Cells RARE (NONE-FEW) Urine Bacteria 1+ H (NEGATIVE) Ur Random Creatinine mg/dL Ur Random Sodium (40.0-220.0) mmol/L 02/26/21 02/27/21 02/27/21 Range/Units 15:15 07:04 07:04 WBC 9.87 (4.0-11.0) K/uL RBC 3.82 L (4.30-5.90) M/uL Hgb 11.1 L (12.0-16.0) g/dL Hct 32.2 L (36.0-46.0) % MCV 84.3 (80.0-98.0) fL MCH 29.1 (27.0-32.0) pg MCHC 34.5 (31.0-37.0) g/dL RDW Std Deviation 41.1 (28.0-62.0) fl RDW Coeff of Terence 14 (11.0-15.0) % Plt Count 204 (150-400) K/uL MPV 9.90 (7.40-12.00) fL Neut % (Auto) 65.4 (48.0-80.0) % Lymph % (Auto) 23.0 (16.0-40.0) % [place] % (Auto) 10.1 (0.0-15.0) % Eos % (Auto) 1.3 (0.0-7.0) % Baso % (Auto) 0.2 (0.0-1.5) % Neut # (Auto) 6.5 H (1.4-5.7) K/uL Lymph # (Auto) 2.3 (0.6-2.4) K/uL [place] # (Auto) 1.0 H (0.0-0.8) K/uL Eos # (Auto) 0.1 (0.0-0.7) K/uL Baso # (Auto) 0.0 (0.0-0.1) K/uL Nucleated RBC % 0.0 /100WBC Nucleated RBCs # 0 K/uL Sodium 128 L (136-145) mmol/L Potassium 3.7 (3.5-5.1) mmol/L Chloride 94 L (98-107) mmol/L Carbon Dioxide 26.1 (21.0-32.0) mmol/L BUN 18 (7.0-18.0) mg/dL Creatinine 1.1 H (0.6-1.0) mg/dL Est Cr Clr Drug Dosing 32.29 mL/min Estimated GFR (MDRD) 47.2 ml/min Glucose 97 (74-106) mg/dL Calcium 9.1 (8.5-10.1) mg/dL Phosphorus 3.3 (2.6-4.7) mg/dL Magnesium 1.8 (1.8-2.4) mg/dL Total Bilirubin (0.2-1.0) mg/dL AST (15-37) IU/L ALT (14-63) IU/L Alkaline Phosphatase (46-116) U/L Creatine Kinase (26-308) U/L Troponin I (0.000-0.056) ng/mL B-Natriuretic Peptide (<100) PG/ML Total Protein (6.4-8.2) g/dL Albumin (3.4-5.0) g/dL Globulin (2.6-4.0) g/dL Albumin/Globulin Ratio (0.9-1.6) Lipase (73-393) U/L Urine Color Urine Appearance Urine pH (5.0-8.0) Ur Specific [place] (1.001-1.035) Urine Protein (NEGATIVE) mg/dL Urine Glucose (UA) (NEGATIVE) mg/dL Urine Ketones (NEGATIVE) mg/dL Urine Occult Blood (NEGATIVE) Urine Nitrite (NEGATIVE) Urine Bilirubin (NEGATIVE) Urine Urobilinogen (<2.0) EU/dL Ur Leukocyte Esterase (NEGATIVE) Urine RBC (0-2/HPF) Urine WBC (0-5/HPF) Ur Epithelial Cells (NONE-FEW) Urine Bacteria (NEGATIVE) Ur Random Creatinine 28.6 mg/dL Ur Random Sodium 52.0 (40.0-220.0) mmol/L Med Orders - Current: Current Medications Acetaminophen (Acetaminophen 325 Mg Tab) 650 mg PO Q4H PRN PRN Reason: Pain (Mild 1-3)/fever Last Admin: 02/27/21 04:06 Dose: 650 mg Documented by: Albuterol/Ipratropium (Albuterol/Ipratropium 3.0-0.5 Mg/3 Ml Neb Soln) 3 ml NEB Q4HRRT PRN PRN Reason: Shortness Of Breath/wheezing Atenolol (Atenolol 50 Mg Tab) 50 mg PO DAILY [facility] Heparin Sodium (Porcine) (Heparin Sodium 5,000 Units/Ml Vial) 5,000 units SUBCUT Q8H [facility] Last Admin: 02/27/21 09:12 Dose: 5,000 units Documented by: Sodium Chloride (Normal Saline) 1,000 mls @ 1,000 mls/hr IV ASDIRECTED [facility] Last Admin: 02/26/21 15:43 Dose: 1,000 mls/hr Documented by: Ciprofloxacin/Dextrose 400 mg/ (Premix) 200 mls @ 200 mls/hr IV Q12H [facility] Last Admin: 02/27/21 09:13 Dose: 200 mls/hr Documented by: Metronidazole 500 mg/ Premix 100 mls @ 100 mls/hr IV Q8H [facility] Last Admin: 02/27/21 04:08 Dose: 100 mls/hr Documented by: Ondansetron HCl (Ondansetron 4 Mg/2 Ml Sdv) 4 mg IVPUSH Q4H PRN PRN Reason: Nausea/Vomiting Pantoprazole Sodium (Pantoprazole 40 Mg Vial) 40 mg IV DAILY [facility] Last Admin: 02/27/21 09:11 Dose: 40 mg Documented by: Rivaroxaban (Rivarox[facility] 15 Mg Tab) [facility] Tramadol HCl (Tramadol 50 Mg Tab) 50 mg PO QPM PRN PRN Reason: Pain Discontinued Medications Piperacillin Sod/Tazobactam (Sod 3.375 gm/ Sodium Chloride) 50 mls @ 100 mls/hr IV ONETIME ONE Stop: 02/26/21 16:19 Last Admin: 02/26/21 16:09 Dose: 100 mls/hr Documented by: Lactated Ringer's (Ringers, Lactated) 1,000 mls @ 125 mls/hr IV ASDIRECTED [facility] Last Infusion: 02/27/21 11:09 Dose: 0 mls/hr Documented by: Lactated Ringer's (Ringers, Lactated) 1,000 mls @ 999 mls/hr IV BOLUS ONE Stop: 02/26/21 18:06 Last Admin: 02/26/21 18:12 Dose: 999 mls/hr Documented by: Magnesium Sulfate 2 gm/ Premix 50 mls @ 12.5 mls/hr IV ONETIME ONE Stop: 02/26/21 21:07 Last Admin: 02/26/21 20:29 Dose: 12.5 mls/hr Documented by: Ciprofloxacin/Dextrose 400 mg/ (Premix) 200 mls @ 200 mls/hr IV Q12H [facility] Last Admin: 02/27/21 01:43 Dose: Not Given Documented by: Metronidazole 500 mg/ Premix 100 mls @ 100 mls/hr IV Q8H [facility] Last Admin: 02/27/21 01:44 Dose: Not Given Documented by: Iopamidol (Iopamidol 755 Mg/Ml 500 Ml Multipack Bottle) 80 ml IVPUSH ONETIME ONE Stop: 02/26/21 14:51 Last Admin: 02/26/21 14:50 Dose: 80 ml Documented by: Metoclopramide HCl (Metoclopramide 10 Mg/2 Ml Sdv) 10 mg IVPUSH ONETIME ONE Stop: 02/26/21 13:01 Last Admin: 02/26/21 13:23 Dose: 10 mg Documented by: - Exam General: Alert, Oriented Lungs: Clear to Auscultation, Normal Respiratory Effort Cardiovascular: Regular Rate, Regular Rhythm GI/Abdominal Exam: Normal Bowel Sounds, Soft, Non-Tender - Patient Data Lab Results Last 24 hrs: Laboratory Results - last 24 hr 02/26/21 02/26/21 02/26/21 Range/Units 12:47 12:47 15:15 WBC (4.0-11.0) K/uL RBC (4.30-5.90) M/uL Hgb (12.0-16.0) g/dL Hct (36.0-46.0) % MCV (80.0-98.0) fL MCH (27.0-32.0) pg MCHC (31.0-37.0) g/dL RDW Std Deviation (28.0-62.0) fl RDW Coeff of Terence (11.0-15.0) % Plt Count (150-400) K/uL MPV (7.40-12.00) fL Neut % (Auto) (48.0-80.0) % Lymph % (Auto) (16.0-40.0) % [place] % (Auto) (0.0-15.0) % Eos % (Auto) (0.0-7.0) % Baso % (Auto) (0.0-1.5) % Neut # (Auto) (1.4-5.7) K/uL Lymph # (Auto) (0.6-2.4) K/uL [place] # (Auto) (0.0-0.8) K/uL Eos # (Auto) (0.0-0.7) K/uL Baso # (Auto) (0.0-0.1) K/uL Nucleated RBC % /100WBC Nucleated RBCs # K/uL Sodium 121 L (136-145) mmol/L Potassium 4.4 (3.5-5.1) mmol/L Chloride 86 L (98-107) mmol/L Carbon Dioxide 26.6 (21.0-32.0) mmol/L BUN 24 H (7.0-18.0) mg/dL Creatinine 1.2 H (0.6-1.0) mg/dL Est Cr Clr Drug Dosing 29.60 mL/min Estimated GFR (MDRD) 42.7 ml/min Glucose 97 (74-106) mg/dL Calcium 9.4 (8.5-10.1) mg/dL Phosphorus 3.9 (2.6-4.7) mg/dL Magnesium 1.4 L (1.8-2.4) mg/dL Total Bilirubin 0.6 (0.2-1.0) mg/dL AST 22 (15-37) IU/L ALT 20 (14-63) IU/L Alkaline Phosphatase 64 (46-116) U/L Creatine Kinase 71 (26-308) U/L Troponin I < 0.050 (0.000-0.056) ng/mL B-Natriuretic Peptide 171 H (<100) PG/ML Total Protein 7.1 (6.4-8.2) g/dL Albumin 3.7 (3.4-5.0) g/dL Globulin 3.4 (2.6-4.0) g/dL Albumin/Globulin Ratio 1.1 (0.9-1.6) Lipase 129 (73-393) U/L Urine Color YELLOW Urine Appearance SLT CLOUDY Urine pH 7.0 (5.0-8.0) Ur Specific [place] 1.010 (1.001-1.035) Urine Protein NEGATIVE (NEGATIVE) mg/dL Urine Glucose (UA) NEGATIVE (NEGATIVE) mg/dL Urine Ketones NEGATIVE (NEGATIVE) mg/dL Urine Occult Blood TRACE-INTACT H (NEGATIVE) Urine Nitrite NEGATIVE (NEGATIVE) Urine Bilirubin NEGATIVE (NEGATIVE) Urine Urobilinogen 0.2 (<2.0) EU/dL Ur Leukocyte Esterase LARGE H (NEGATIVE) Urine RBC 0-2 (0-2/HPF) Urine WBC 15-20 (0-5/HPF) Ur Epithelial Cells RARE (NONE-FEW) Urine Bacteria 1+ H (NEGATIVE) Ur Random Creatinine mg/dL Ur Random Sodium (40.0-220.0) mmol/L 02/26/21 02/27/21 02/27/21 Range/Units 15:15 07:04 07:04 WBC 9.87 (4.0-11.0) K/uL RBC 3.82 L (4.30-5.90) M/uL Hgb 11.1 L (12.0-16.0) g/dL Hct 32.2 L (36.0-46.0) % MCV 84.3 (80.0-98.0) fL MCH 29.1 (27.0-32.0) pg MCHC 34.5 (31.0-37.0) g/dL RDW Std Deviation 41.1 (28.0-62.0) fl RDW Coeff of Terence 14 (11.0-15.0) % Plt Count 204 (150-400) K/uL MPV 9.90 (7.40-12.00) fL Neut % (Auto) 65.4 (48.0-80.0) % Lymph % (Auto) 23.0 (16.0-40.0) % [place] % (Auto) 10.1 (0.0-15.0) % Eos % (Auto) 1.3 (0.0-7.0) % Baso % (Auto) 0.2 (0.0-1.5) % Neut # (Auto) 6.5 H (1.4-5.7) K/uL Lymph # (Auto) 2.3 (0.6-2.4) K/uL [place] # (Auto) 1.0 H (0.0-0.8) K/uL Eos # (Auto) 0.1 (0.0-0.7) K/uL Baso # (Auto) 0.0 (0.0-0.1) K/uL Nucleated RBC % 0.0 /100WBC Nucleated RBCs # 0 K/uL Sodium 128 L (136-145) mmol/L Potassium 3.7 (3.5-5.1) mmol/L Chloride 94 L (98-107) mmol/L Carbon Dioxide 26.1 (21.0-32.0) mmol/L BUN 18 (7.0-18.0) mg/dL Creatinine 1.1 H (0.6-1.0) mg/dL Est Cr Clr Drug Dosing 32.29 mL/min Estimated GFR (MDRD) 47.2 ml/min Glucose 97 (74-106) mg/dL Calcium 9.1 (8.5-10.1) mg/dL Phosphorus 3.3 (2.6-4.7) mg/dL Magnesium 1.8 (1.8-2.4) mg/dL Total Bilirubin (0.2-1.0) mg/dL AST (15-37) IU/L ALT (14-63) IU/L Alkaline Phosphatase (46-116) U/L Creatine Kinase (26-308) U/L Troponin I (0.000-0.056) ng/mL B-Natriuretic Peptide (<100) PG/ML Total Protein (6.4-8.2) g/dL Albumin (3.4-5.0) g/dL Globulin (2.6-4.0) g/dL Albumin/Globulin Ratio (0.9-1.6) Lipase (73-393) U/L Urine Color Urine Appearance Urine pH (5.0-8.0) Ur Specific [place] (1.001-1.035) Urine Protein (NEGATIVE) mg/dL Urine Glucose (UA) (NEGATIVE) mg/dL Urine Ketones (NEGATIVE) mg/dL Urine Occult Blood (NEGATIVE) Urine Nitrite (NEGATIVE) Urine Bilirubin (NEGATIVE) Urine Urobilinogen (<2.0) EU/dL Ur Leukocyte Esterase (NEGATIVE) Urine RBC (0-2/HPF) Urine WBC (0-5/HPF) Ur Epithelial Cells (NONE-FEW) Urine Bacteria (NEGATIVE) Ur Random Creatinine 28.6 mg/dL Ur Random Sodium 52.0 (40.0-220.0) mmol/L Result Diagrams: 02/27/21 07:04 02/27/21 07:04 Sepsis Event Note - Evaluation Sepsis Screening Result: No Definite Risk - Focused Exam Vital Signs: Vital Signs Temp Pulse Resp BP Pulse Ox 02/27/21 11:55 36.1 C 70 16 122/65 97 02/27/21 07:32 36.1 C 73 17 144/63 H 94 L 02/27/21 04:00 36.3 C 73 16 135/70 96 - Problem List Review Problem List Initiated/Reviewed/Updated: Yes - My Orders Last 24 Hours: My Active Orders 02/26/21 Dinner Clear Liquid Diet [DIET] 02/26/21 17:06 Ambulate [RC] ASDIRECTED Oxygen Therapy [RC] PRN Pulse Oximetry [RC] PRN VTE/DVT Education [RC] PER UNIT ROUTINE Vital Signs [RC] Q4H Acetaminophen [TylenoL] 650 mg PO Q4H PRN Albuterol/Ipratropium [DuoNeb 3.0-0.5 MG/3 ML] 3 ml NEB Q4HRRT PRN Ondansetron [Zofran] 4 mg IVPUSH Q4H PRN Sequential Compression Device [OM.PC] Per Unit Routine 02/26/21 17:07 Antiembolic Devices [RC] PER UNIT ROUTINE 02/26/21 17:08 RT Aerosol Therapy [RC] ASDIRECTED 02/26/21 17:15 Heparin Sodium 5,000 units SUBCUT Q8H 02/26/21 18:48 Telemetry Monitoring [Cardiac Monitoring] [RC] Q8H 02/26/21 21:00 Ciprofloxacin in D5W [Cipro in D5W 400 MG/200 ML] 400 mg Premix Bag 1 bag IV Q12H metroNIDAZOLE/Normal Saline [Flagyl in NS 500 MG/100 ML] 500 mg Premix Bag 1 bag IV Q8H 02/26/21 22:22 CULTURE URINE [MREF] Routine 02/26/21 22:23 Resuscitation Status Routine 02/27/21 Breakfast Heart Healthy Diet [DIET] 02/27/21 09:00 Pantoprazole [ProTONIX IV] 40 mg IV DAILY 02/27/21 12:25 traMADol [Ultram] 50 mg PO QPM PRN 02/27/21 17:30 Rivaroxaban [Xarelto] 15 mg PO WITHDINNER 02/28/21 09:00 atenoloL [Tenormin] 50 mg PO DAILY - Plan Plan:: 85-year-old female admitted for generalized weakness, nausea, vomiting and abdominal pain CT scan significant for colitis, today patient had an episode of loose stools Patient was also found to be hyponatremic likely secondary to recent Lasix use as well as nausea and vomiting, patient denies any diarrhea Continue IV fluid hydration, possibly hypovolemic hyponatremia, hyponatremia is resolving, if no more diarrheal episodes and patient is eating and drinking okay will probably DC fluids in the evening Continue IV antibiotics including Cipro and Flagyl IV Zofran for nausea vomiting although patient states her symptoms have resolved IV pantoprazole daily DuoNebs as needed Recheck sodium in a.m. Monitor and replete electrolytes as necessary Patient is full code SCDs for DVT prophylaxis Anticipate 1 to 2 days of hospital stay
[2021-02-27] MEDS ORDERED: Rivaroxaban 15 MG Tab PO SCH (17:30)
[2021-02-28] MEDS: Heparin Sodium 5,000 Units/ML Vial SUBCUT SCH ×2 (02:10→08:38)
[2021-02-28] MEDS: metroNIDAZOLE/Normal Saline 500 MG in Premix Bag 1 BAG IV SCH ×2 (04:58→12:11)
[2021-02-28 08:01] LABS: CARBON DIOXIDE,CO2 25.8 mmol/L (21.0-32.0)
[2021-02-28] MEDS: Ciprofloxacin in D5W 400 MG in Premix Bag 1 BAG IV SCH ×2 (08:39)
[2021-02-28] MEDS: Pantoprazole 40 MG Vial IV SCH (08:39)
[2021-02-28] MEDS ORDERED: Atenolol 50 MG Tab PO SCH (09:00)
[2021-02-28] MEDS ORDERED: Magnesium Sulfate/Water 2 GM in Premix Bag 1 BAG IV ONE ×2 (10:22→10:45)
[2021-02-28 12:18] VITALS: BP 118/54; PULSE 70
--- NOTE | 2021-02-28 13:52 | PCM.DCSUM1 ---
Discharge Summary - Hospital Course Free Text/Narrative:: Patient is a 85-year-old female with past medical history of A. fib on anticoagulation, hypertension, arthritis who comes in stating that she has been nauseous and has vomited once associated with some abdominal pain for last few days. Patient states that couple of days back she was started on Lasix by her primary care doctor for leg swelling she took 1 pill on first day and 2 pills following day for 3 more days. She did not have a good appetite after starting her Lasix pill and felt nauseous and had abdominal pain as well as result she got dehydrated. Patient states that her leg swelling has resolved by now but continues to have some abdominal discomfort. In the ER patient was found to be hyponatremic as well has had some mild renal insufficiency. CT scan of the abdomen was obtained which showed possible colitis. Patient was admitted to the hospital for further management of hyponatremia and colitis. Patient was started on IV fluids, lasix was held, she was started on IV cipro and Flagyl for colitis, she has 1-2 loose stools, negative for cdiff. Her diarrhea resolved, rest of stool studies pending. UA showed possible mild UTI but patient deied any UTI symptoms, preliminary cultures showed <[id number] colony forming bacteria, unlikely UTI. Patients sodium improved slowly, she was able to eat and drink normally, ambulate well. Patient was medically stable for dc after a ride home was arrange via her home health/ director of primary care service, She was sent home on oral antibiotics for 5 more days. Patient was recommend to follow up with her pcp upon dc. Diagnosis: Stroke: No - Discharge Data Discharge Date: 02/28/21 Discharge Disposition: Home, Self-Care 01 Condition: Stable - Referral to Home Health Primary Care Physician: Samantha Hoover MD - Discharge Diagnosis/Problem(s) (1) Hyponatremia SNOMED Code(s): 25221676 ICD Code: E87.1 - HYPO-OSMOLALITY AND HYPONATREMIA Status: Acute Current Visit: Yes (2) Anticoagulant long-term use SNOMED Code(s): 371321700 ICD Code: Z79.01 - [employer] (CURRENT) USE OF ANTICOAGULANTS Status: Acute Priority: Medium Current Visit: No (3) Arthritis of left foot SNOMED Code(s): 9574585618681796 ICD Code: M19.072 - PRIMARY OSTEOARTHRITIS, LEFT ANKLE AND FOOT Status: Acute Current Visit: No (4) Atrial fibrillation SNOMED Code(s): 78437955 ICD Code: I48.91 - UNSPECIFIED ATRIAL FIBRILLATION Status: Acute Current Visit: No Qualifiers: Atrial fibrillation type: chronic (5) Hypertension SNOMED Code(s): 22896773 ICD Code: I10 - ESSENTIAL (PRIMARY) HYPERTENSION Status: Acute Priority: Medium Current Visit: No Qualifiers: Hypertension type: essential hypertension (6) Osteoarthritis of knee SNOMED Code(s): 971137142 ICD Code: M17.9 - OSTEOARTHRITIS OF KNEE, UNSPECIFIED Status: Acute Current Visit: No (7) Spinal stenosis SNOMED Code(s): 94799022 ICD Code: M48.00 - SPINAL STENOSIS, SITE UNSPECIFIED Status: Acute Current Visit: No (8) UTI (urinary tract infection) SNOMED Code(s): 39597996 ICD Code: N39.0 - URINARY TRACT INFECTION, SITE NOT SPECIFIED Status: Acute Current Visit: No - Patient Instructions Diet: Usual Diet as Tolerated Activity: As Tolerated Driving: Do Not Drive Showering/Bathing: May Shower Notify Provider of: Fever, Increased Pain, Swelling and Redness, Drainage, Jason sea and/or Vomiting - Discharge Plan *PRESCRIPTION DRUG MONITORING PROGRAM REVIEWED*: No *COPY OF PRESCRIPTION DRUG MONITORING REPORT IN PATIENT TIFFANIE: No Prescriptions/Med Rec: Ciprofloxacin HCl [Cipro] 500 mg PO Q12H #10 tablet metroNIDAZOLE [Flagyl] 500 mg PO Q8H #15 tab Home Medications: Home Meds Rivaroxaban [Xarelto] 15 mg PO DAILY #30 tablet 08/15/14 [Rx] Quinapril [Accupril] 20 mg PO DAILY 04/09/18 [History] Furosemide 40 mg PO ASDIRECTED 02/27/21 [History] Triamterene/Hydrochlorothiazid [Triamterene-HCTZ 37.5-25 MG] 1 tab PO DAILY 02/27/21 [History] atenoloL [Atenolol] 50 mg PO DAILY 02/27/21 [History] traMADol HCl [Tramadol HCl] 50 mg PO QPM PRN MDD 50 02/27/21 [History] Ciprofloxacin HCl [Cipro] 500 mg PO Q12H #10 tablet 02/28/21 [Rx] metroNIDAZOLE [Flagyl] 500 mg PO Q8H #15 tab 02/28/21 [Rx] Forms: ED Department Discharge Referrals: Samantha Hoover MD [Primary Care Provider] - - Discharge Summary/Plan Comment DC Time >30 min.: No - Patient Data Vitals - Most Recent: Last Vital Signs Temp 36.4 C 02/28/21 12:13 Pulse 70 02/28/21 12:13 Resp 17 02/28/21 12:13 BP 118/54 L 02/28/21 12:13 Pulse Ox 97 02/28/21 12:13 Weight - Most Recent: 91.172 kg I&O - Last 24 hours: Intake & Output 02/27/21 02/28/21 02/28/21 22:59 06:59 14:59 Intake Total 750 500 Output Total 0 1500 Balance 750 -1000 Lab Results - Last 24 hrs: Laboratory Results - last 24 hr 02/28/21 Range/Units 07:28 Sodium 131 L (136-145) mmol/L Potassium 4.0 (3.5-5.1) mmol/L Chloride 96 L (98-107) mmol/L Carbon Dioxide 25.8 (21.0-32.0) mmol/L BUN 17 (7.0-18.0) mg/dL Creatinine 1.2 H (0.6-1.0) mg/dL Est Cr Clr Drug Dosing 29.60 mL/min Estimated GFR (MDRD) 42.7 ml/min Glucose 101 (74-106) mg/dL Calcium 9.0 (8.5-10.1) mg/dL Phosphorus 3.3 (2.6-4.7) mg/dL Magnesium 1.6 L (1.8-2.4) mg/dL LILIYA Results - Last 24 hrs: Microbiology 02/27/21 01:55 Urine Culture - Preliminary Urine 02/27/21 09:40 C. difficile Antigen & Toxins A,B - Final Stool / Feces Med Orders - Current: Current Medications Acetaminophen (Acetaminophen 325 Mg Tab) 650 mg PO Q4H PRN PRN Reason: Pain (Mild 1-3)/fever Last Admin: 02/27/21 23:31 Dose: 650 mg Documented by: Albuterol/Ipratropium (Albuterol/Ipratropium 3.0-0.5 Mg/3 Ml Neb Soln) 3 ml NEB Q4HRRT PRN PRN Reason: Shortness Of Breath/wheezing Atenolol (Atenolol 50 Mg Tab) 50 mg PO DAILY [facility] Last Admin: 02/28/21 08:38 Dose: 50 mg Documented by: Heparin Sodium (Porcine) (Heparin Sodium 5,000 Units/Ml Vial) 5,000 units SUBCUT Q8H [facility] Last Admin: 02/28/21 08:38 Dose: 5,000 units Documented by: Sodium Chloride (Normal Saline) 1,000 mls @ 1,000 mls/hr IV ASDIRECTED [facility] Last Admin: 02/26/21 15:43 Dose: 1,000 mls/hr Documented by: Ciprofloxacin/Dextrose 400 mg/ (Premix) 200 mls @ 200 mls/hr IV Q12H [facility] Last Admin: 02/28/21 08:39 Dose: 200 mls/hr Documented by: Metronidazole 500 mg/ Premix 100 mls @ 100 mls/hr IV Q8H [facility] Last Admin: 02/28/21 12:11 Dose: 100 mls/hr Documented by: Ondansetron HCl (Ondansetron 4 Mg/2 Ml Sdv) 4 mg IVPUSH Q4H PRN PRN Reason: Nausea/Vomiting Pantoprazole Sodium (Pantoprazole 40 Mg Vial) 40 mg IV DAILY [facility] Last Admin: 02/28/21 08:39 Dose: 40 mg Documented by: Rivaroxaban (Rivaroxaban 15 Mg Tab) 15 mg PO WITHDINNER [facility] Last Admin: 02/27/21 17:18 Dose: 15 mg Documented by: Tramadol HCl (Tramadol 50 Mg Tab) 50 mg PO QPM PRN PRN Reason: Pain Last Admin: 02/27/21 20:17 Dose: 50 mg Documented by: Discontinued Medications Piperacillin Sod/Tazobactam (Sod 3.375 gm/ Sodium Chloride) 50 mls @ 100 mls/hr IV ONETIME ONE Stop: 02/26/21 16:19 Last Admin: 02/26/21 16:09 Dose: 100 mls/hr Documented by: Lactated Ringer's (Ringers, Lactated) 1,000 mls @ 125 mls/hr IV ASDIRECTED [facility] Last Infusion: 02/27/21 11:09 Dose: 0 mls/hr Documented by: Lactated Ringer's (Ringers, Lactated) 1,000 mls @ 999 mls/hr IV BOLUS ONE Stop: 02/26/21 18:06 Last Admin: 02/26/21 18:12 Dose: 999 mls/hr Documented by: Magnesium Sulfate 2 gm/ Premix 50 mls @ 12.5 mls/hr IV ONETIME ONE Stop: 02/26/21 21:07 Last Admin: 02/26/21 20:29 Dose: 12.5 mls/hr Documented by: Ciprofloxacin/Dextrose 400 mg/ (Premix) 200 mls @ 200 mls/hr IV Q12H [facility] Last Admin: 02/27/21 01:43 Dose: Not Given Documented by: Metronidazole 500 mg/ Premix 100 mls @ 100 mls/hr IV Q8H [facility] Last Admin: 02/27/21 01:44 Dose: Not Given Documented by: Magnesium Sulfate 2 gm/ Premix 50 mls @ 12.5 mls/hr IV ONETIME ONE Stop: 02/28/21 14:21 Last Admin: 02/28/21 11:01 Dose: Not Given Documented by: Magnesium Sulfate 2 gm/ Premix 50 mls @ 50 mls/hr IV ONETIME ONE Stop: 02/28/21 11:44 Last Admin: 02/28/21 10:56 Dose: 50 mls/hr Documented by: Iopamidol (Iopamidol 755 Mg/Ml 500 Ml Multipack Bottle) 80 ml IVPUSH ONETIME ONE Stop: 02/26/21 14:51 Last Admin: 02/26/21 14:50 Dose: 80 ml Documented by: Metoclopramide HCl (Metoclopramide 10 Mg/2 Ml Sdv) 10 mg IVPUSH ONETIME ONE Stop: 02/26/21 13:01 Last Admin: 02/26/21 13:23 Dose: 10 mg Documented by:
[2021-02-28] MEDS: Acetaminophen 325 MG Tab PO PRN (14:52)
== END 2021-02-28 15:30 | disposition home or self-care (01) ==
LOC: MW.ED 12:34 → MW.MS 15:49
PROVIDERS: ADMIT Student in an Organized Health Care Education/Training Program; ATTEND Student in an Organized Health Care Education/Training Program
DX: E87.1 Hypo-osmolality and hyponatremia (principal); R53.1 Weakness; R11.2 Nausea with vomiting, unspecified; M79.89 Other specified soft tissue disorders; R51.9 Headache, unspecified; K52.9 Noninfective gastroenteritis and colitis, unspecified; M19.072 Primary osteoarthritis, left ankle and foot; E86.0 Dehydration; I48.91 Unspecified atrial fibrillation; I10 Essential (primary) hypertension; N39.0 Urinary tract infection, site not specified; M17.9 Osteoarthritis of knee, unspecified; M48.00 Spinal stenosis, site unspecified; E66.9 Obesity, unspecified; Z68.34 Body mass index [BMI] 34.0-34.9, adult; Z88.6 Allergy status to analgesic agent; Z88.8 Allergy status to other drugs, medicaments and biological substances; Z79.01 Long term (current) use of anticoagulants
CPT/HCPCS: 36415; 70450; 71046; 74177; 80048; 80053; 81001; 82550; 82570; 83690; 83735; 83880; 83930; 83935; 84100; 84300; 84484; 84540; 84560; 85025; 87045; 87046; 87086; 87324; 87328; 87329; 87449; 87899; 93005; 96365; 96375; 99291; A9270; C9113; J0744; J1644; J2543; J2765; J3475; J3490; J7030; J7120; Q9967; 96366; 96367; 96368; 96372; 96376; G0378

== ENCOUNTER 2022-01-29 18:10 | Inpatient (IN) | payer MEDICARE, BC ==
[2022-01-29] MEDS ORDERED: Sodium Chloride 0.9% 10 ML Syringe FLUSH PRN ×2 (18:32→20:37)
[2022-01-29] MEDS ORDERED: Sodium Chloride 0.9% 2.5 ML Syringe FLUSH PRN ×2 (18:32→20:37)
[2022-01-29] MEDS ORDERED: Benzonatate 100 MG Cap PO ONE (18:59)
[2022-01-29 20:02] LABS: CARBON DIOXIDE,CO2 23.1 mmol/L (21.0-32.0); POTASSIUM,K 4.7 mmol/L (3.5-5.1)
[2022-01-29 20:22] LABS: CORONAVIRUS COVID-19 NAA NEGATIVE (NEGATIVE); INFLUENZA A NAA NEGATIVE (NEGATIVE); INFLUENZA B NAA NEGATIVE (NEGATIVE)
[2022-01-29 20:30] LABS: ESTIMATED GFR 47.1 ml/min
[2022-01-29] MEDS ORDERED: Sodium Chloride 0.9% 1,000 ML IV ONE (20:37)
[2022-01-29 23:25] LABS: CARBON DIOXIDE,CO2 23.8 mmol/L (21.0-32.0); POTASSIUM,K 4.4 mmol/L (3.5-5.1)
[2022-01-30 00:10] LABS: ESTIMATED GFR 47.1 ml/min
[2022-01-30] MEDS: guaiFENesin/Dextromethorphan 100-10 MG/5 ML Soln 10 ML Cup PO PRN ×3 (05:18→20:38)
[2022-01-30] MEDS: Acetaminophen 325 MG Tab PO PRN ×2 (05:23→20:38)
[2022-01-30] MEDS: Sodium Chloride 0.9% 1,000 ML IV SCH ×2 (06:50→10:45)
[2022-01-30] MEDS ORDERED: Sodium Chloride 0.9% 500 ML IV ONE (07:00)
[2022-01-30 07:34] LABS: CARBON DIOXIDE,CO2 22.8 mmol/L (21.0-32.0); POTASSIUM,K 4.2 mmol/L (3.5-5.1)
[2022-01-30 07:37] LABS: ESTIMATED GFR 47.1 ml/min
[2022-01-30] MEDS: Rivaroxaban 15 MG Tab PO SCH (08:16)
[2022-01-30] MEDS: Atenolol 50 MG Tab PO SCH (08:16)
[2022-01-30] MEDS: Benzonatate 100 MG Cap PO PRN ×2 (10:44→20:39)
[2022-01-31] MEDS: guaiFENesin/Dextromethorphan 100-10 MG/5 ML Soln 10 ML Cup PO PRN ×3 (04:55→14:35)
[2022-01-31] MEDS: Benzonatate 100 MG Cap PO PRN ×2 (04:55→14:33)
[2022-01-31 06:50] LABS: CARBON DIOXIDE,CO2 23.3 mmol/L (21.0-32.0)
[2022-01-31 06:55] LABS: ESTIMATED GFR 42.6 ml/min
[2022-01-31] MEDS: Atenolol 50 MG Tab PO SCH (08:39)
[2022-01-31] MEDS: Rivaroxaban 15 MG Tab PO SCH (08:39)
[2022-01-31] MEDS ORDERED: Sodium Chloride 1 GM Tab PO ONE (12:33)
[2022-01-31] MEDS ORDERED: Magnesium Oxide 400 MG Tab PO ONE (13:22)
[2022-01-31 17:31] VITALS: BP 123/70; PULSE 69
== END 2022-01-31 16:57 | disposition home or self-care (01) | DRG 641 ==
LOC: MW.ED 18:10 → MW.MS 20:41
PROVIDERS: ADMIT Internal Medicine; ATTEND Internal Medicine
DX: E87.1 Hypo-osmolality and hyponatremia (principal); E86.0 Dehydration; N28.9 Disorder of kidney and ureter, unspecified; Z20.822 Contact with and (suspected) exposure to COVID-19; I10 Essential (primary) hypertension; I48.91 Unspecified atrial fibrillation; M19.90 Unspecified osteoarthritis, unspecified site; F41.9 Anxiety disorder, unspecified; F32.A Depression, unspecified; E66.9 Obesity, unspecified; Z79.899 Other long term (current) drug therapy; J06.9 Acute upper respiratory infection, unspecified; Z88.5 Allergy status to narcotic agent; Z88.8 Allergy status to other drugs, medicaments and biological substances; Z90.710 Acquired absence of both cervix and uterus; Z98.49 Cataract extraction status, unspecified eye; Z79.01 Long term (current) use of anticoagulants; Z68.36 Body mass index [BMI] 36.0-36.9, adult
CPT/HCPCS: 0240U; 36415; 71045; 80048; 80053; 81001; 83735; 83880; 83930; 83935; 84295; 84300; 84484; 85025; 93005; 96360; 96361; 97163; 93010; 99284; 99285-25; A9270-GY; J7030; J7040

== ENCOUNTER 2022-03-24 18:35 | Inpatient (IN) | payer MEDICARE, BC ==
[2022-03-24] MEDS ORDERED: Sodium Chloride 0.9% 1,000 ML IV ONE ×2 (18:53→20:48)
[2022-03-24 19:34] LABS: CARBON DIOXIDE,CO2 21.9 mmol/L (21.0-32.0); POTASSIUM,K 4.1 mmol/L (3.5-5.1)
[2022-03-24] MEDS ORDERED: cefTRIAXone 1 GM in Sodium Chloride 0.9% 50 ML IV ONE (20:24)
[2022-03-24] MEDS ORDERED: Ondansetron 4 MG/2 ML SDV IVPUSH PRN (23:00)
[2022-03-24] MEDS ORDERED: Albuterol/Ipratropium 3.0-0.5 MG/3 ML Neb Soln NEB PRN (23:00)
[2022-03-24] MEDS: Pantoprazole 40 MG in Sodium Chloride 0.9% 10 ML IVPUSH SCH (23:34)
[2022-03-25] MEDS ORDERED: Nystatin/Triamcinolone Crm 60 GM Tube TOP SCH (00:15)
[2022-03-25] MEDS ORDERED: Atenolol 25 MG Tab PO ONE (00:19)
[2022-03-25] MEDS: Lactated Ringers 1,000 ML IV SCH ×3 (00:35→18:26)
[2022-03-25] MEDS: Acetaminophen 325 MG Tab PO PRN ×3 (00:37→18:55)
[2022-03-25] MEDS: Nystatin/Triamcinolone Crm 60 GM Tube TOP SCH (04:02)
[2022-03-25 07:12] LABS: CARBON DIOXIDE,CO2 17.9 mmol/L (21.0-32.0); POTASSIUM,K 4.1 mmol/L (3.5-5.1)
[2022-03-25] MEDS: Atenolol 50 MG Tab PO SCH (08:24)
[2022-03-25] MEDS: Rivaroxaban 15 MG Tab PO SCH (08:24)
[2022-03-25] MEDS: Magnesium Oxide 400 MG Tab PO SCH (12:40)
[2022-03-25] MEDS: cefTRIAXone 1 GM in Sodium Chloride 0.9% 50 ML IV SCH (23:35)
[2022-03-25] MEDS: Pantoprazole 40 MG in Sodium Chloride 0.9% 10 ML IVPUSH SCH (23:35)
[2022-03-26] MEDS: Acetaminophen 325 MG Tab PO PRN ×4 (00:40→21:22)
[2022-03-26] MEDS: Lactated Ringers 1,000 ML IV SCH ×3 (03:27→21:07)
[2022-03-26] MEDS: Nystatin/Triamcinolone Crm 60 GM Tube TOP SCH ×3 (03:55→17:53)
[2022-03-26 07:40] LABS: CARBON DIOXIDE,CO2 22.6 mmol/L (21.0-32.0); POTASSIUM,K 3.7 mmol/L (3.5-5.1)
[2022-03-26] MEDS: Rivaroxaban 15 MG Tab PO SCH (08:44)
[2022-03-26] MEDS: Atenolol 50 MG Tab PO SCH (08:44)
[2022-03-26] MEDS: Magnesium Oxide 400 MG Tab PO SCH (08:44)
[2022-03-26] MEDS: Pantoprazole 40 MG in Sodium Chloride 0.9% 10 ML IVPUSH SCH (23:12)
[2022-03-26] MEDS: cefTRIAXone 1 GM in Sodium Chloride 0.9% 50 ML IV SCH (23:12)
[2022-03-27] MEDS: Acetaminophen 325 MG Tab PO PRN ×4 (01:43→21:31)
[2022-03-27] MEDS: Nystatin/Triamcinolone Crm 60 GM Tube TOP SCH ×2 (05:00→16:50)
[2022-03-27 06:20] LABS: CARBON DIOXIDE,CO2 22.5 mmol/L (21.0-32.0); POTASSIUM,K 4.5 mmol/L (3.5-5.1)
[2022-03-27] MEDS: Atenolol 50 MG Tab PO SCH (09:00)
[2022-03-27] MEDS: Rivaroxaban 15 MG Tab PO SCH (09:01)
[2022-03-27] MEDS: Magnesium Oxide 400 MG Tab PO SCH (09:01)
[2022-03-27] MEDS ORDERED: traMADol 50 MG Tab PO ONE (23:16)
[2022-03-27] MEDS: cefTRIAXone 1 GM in Sodium Chloride 0.9% 50 ML IV SCH (23:21)
[2022-03-27] MEDS: Pantoprazole 40 MG in Sodium Chloride 0.9% 10 ML IVPUSH SCH (23:22)
[2022-03-28] MEDS: Nystatin/Triamcinolone Crm 60 GM Tube TOP SCH (05:35)
[2022-03-28 06:58] LABS: CARBON DIOXIDE,CO2 23.1 mmol/L (21.0-32.0); POTASSIUM,K 4.3 mmol/L (3.5-5.1)
[2022-03-28 07:10] VITALS: BP 130/69
[2022-03-28 08:44] VITALS: PULSE 89
[2022-03-28] MEDS: Atenolol 50 MG Tab PO SCH (08:44)
[2022-03-28] MEDS: Rivaroxaban 15 MG Tab PO SCH (08:44)
== END 2022-03-28 13:25 | disposition home or self-care (01) | DRG 683 ==
LOC: MW.ED 18:35 → MW.MS 21:36
PROVIDERS: ADMIT Student in an Organized Health Care Education/Training Program; ATTEND Student in an Organized Health Care Education/Training Program
DX: N17.9 Acute kidney failure, unspecified (principal); E87.1 Hypo-osmolality and hyponatremia; I48.20 Chronic atrial fibrillation, unspecified; M62.82 Rhabdomyolysis; N39.0 Urinary tract infection, site not specified; I48.91 Unspecified atrial fibrillation; I10 Essential (primary) hypertension; F32.A Depression, unspecified; F41.9 Anxiety disorder, unspecified; E86.0 Dehydration; M48.00 Spinal stenosis, site unspecified; Z20.822 Contact with and (suspected) exposure to COVID-19; W01.0XXA Fall on same level from slipping, tripping and stumbling without subsequent striking against object, initial encounter; M19.90 Unspecified osteoarthritis, unspecified site; E66.9 Obesity, unspecified; Z90.49 Acquired absence of other specified parts of digestive tract; Z88.1 Allergy status to other antibiotic agents; Z79.899 Other long term (current) drug therapy; Z79.01 Long term (current) use of anticoagulants; Z88.5 Allergy status to narcotic agent; Z88.8 Allergy status to other drugs, medicaments and biological substances; Z90.710 Acquired absence of both cervix and uterus; Z98.49 Cataract extraction status, unspecified eye; Z96.653 Presence of artificial knee joint, bilateral; Z68.35 Body mass index [BMI] 35.0-35.9, adult
CPT/HCPCS: 36415; 70450; 70450-26; 71045; 71045-26; 72125; 72125-26; 72170; 72170-26; 73030-26-LT; 73030-LT; 73562-26-LT; 73562-LT; 80048; 80053; 81001; 82550; 83605; 83735; 84100; 84484; 85025; 85610; 85730; 87040; 87086; 87088; 87186; 93005; 93010; 96361; 96365; 99284; 99285-25; A9270-GY; C9113; J0696; J3490; J7030; J7120; U0002

== ENCOUNTER 2022-05-23 16:55 | Emergency (ER) | payer MEDICARE, BC ==
[2022-05-23] MEDS ORDERED: Furosemide 40 MG/4 ML VIAL IV ONE (17:35)
[2022-06-21 12:31] LABS: BLOOD UREA NITROGEN,BUN 26 mg/dL (7.0-18.0); CARBON DIOXIDE,CO2 25.4 mmol/L (21.0-32.0); CHLORIDE,CL 98 mmol/L (98-107); GLUCOSE RANDOM 105 mg/dL (74-106); POTASSIUM,K 4.5 mmol/L (3.5-5.1); SODIUM,NA 133 mmol/L (136-145)
[2022-06-21 12:32] LABS: ESTIMATED GFR 44 mL/min (>60)
== END 2022-05-23 21:10 | disposition other institution (70) ==
LOC: MW.ED 16:55
DX: I50.9 Heart failure, unspecified (principal)
CPT/HCPCS: 71045; 80053; 83880; 84484; 85025; 96374; 99285; J1940; U0002